=== PATIENT | female | born 1985 | race Caucasian/White ===

== ENCOUNTER → 2016-10-19 | Outpatient (CLI) | payer OTHER ==
[2016-10-19 12:51] LABS: PATH.CAST-FLAG NOT PRESENT; SPERM-FLAG NOT PRESENT; SRC-FLAG NOT PRESENT; XTAL-FLAG NOT PRESENT; YLC-FLAG NOT PRESENT
[2016-10-19 13:38] LABS: HIV 1&2 ANTIBODY SCREEN Nonreactive (Nonreactive); HIV-1 p24 ANTIGEN Nonreactive (Nonreactive)
[2016-10-24 00:06] LABS: AFP VALUE 84.9 ng/mL (.); DIA MoM 1.89 (.); DSR (BY AGE) 1 IN 444 (.); DSR (SECOND TRIMESTER) 1 IN 6261 (.); GESTAT AGE BASED ON EDD (.); GESTAT AGE ON COLLECTION DATE 18.1 WEEKS (.); HCG VALUE 21162 mIU/mL (.); MULTIPLE GESTATION Twins (.); T18 RISK See interpretation. (.); TEST RESULTS *Screen Negative* (.); UE3 VALUE 1.72 ng/mL (.); WEIGHT 122 lbs (.)
== END | disposition home or self-care (01) ==
LOC: LAB 12:11
PROVIDERS: ATTEND Obstetrics & Gynecology
DX: O30.041 Twin pregnancy, dichorionic/diamniotic, first trimester (principal); Z3A.00 Weeks of gestation of pregnancy not specified
CPT/HCPCS: 36415; 81001; 82105; 82677; 84702; 85025; 86336; 86592; 86703; 86762; 86787; 86850; 86900; 87086; 87340; 87899; G0435